=== PATIENT | female | born 1985 | race Two or more races ===

== ENCOUNTER 2023-02-03 09:02 | Inpatient (IN) | payer OTHER ==
[2023-02-03 10:29] VITALS: RESP 18; BMI 27.3
[2023-02-03] MEDS ORDERED: DEXTROSE 5%-LACTATED RINGERS 1,000 ML IV ONE (10:30)
[2023-02-03] MEDS ORDERED: TERBUTALINE SULFATE 1 MG/1 ML VIAL SQ ONE ×2 (10:30→10:45)
[2023-02-03 10:38] LABS: BASO % 0.2 % (0-2.0); EOS % 1.2 % (0-4.5); HEMATOCRIT 37.9 % (32.4-45.2); HEMOGLOBIN 12.2 GM/dL (10.7-15.3); LYMPH % 25.2 % (8-40); MCH 27.1 pg (25.7-33.7); MCHC 32.2 g/dl (32.0-36.0); MEAN PLT VOLUME 8.9 fl (7.5-11.1); MONO % 8.3 % (3.8-10.2); NEUT % 65.1 % (42.8-82.8); PLATELET COUNT 225 10^3/uL (134-434); RDW 12.8 % (11.6-15.6); WHITE BLOOD COUNT 7.1 K/mm3 (4.0-10.0)
[2023-02-03 10:43] LABS: INR 0.99 (0.83-1.09); PROTHROMBIN TIME (PATIENT) 11.5 SEC (9.7-13.0)
[2023-02-03] MEDS ORDERED: DEXTROSE 5%-LACTATED RINGERS 1,000 ML IV SCH (10:45)
[2023-02-03 10:46] LABS: ACTIVATED PTT 29.3 SECONDS (25.2-36.5)
[2023-02-03 11:04] LABS: POTASSIUM 3.7 mmol/L (3.5-5.1)
[2023-02-03 11:06] LABS: BLOOD UREA NITROGEN 8.6 mg/dL (7-18)
[2023-02-03 11:09] LABS: CREATININE 0.4 mg/dL (0.55-1.3)
[2023-02-03 11:11] VITALS: BP 107/63; PULSE 60; TEMP 98
[2023-02-03] MEDS ORDERED: SODIUM CHLORIDE 500 ML IV STA (11:43)
== END 2023-02-03 12:54 | disposition home or self-care (01) | DRG 566 ==
LOC: JLDR 09:02
PROVIDERS: ADMIT Obstetrics & Gynecology Maternal & Fetal Medicine; ATTEND Obstetrics & Gynecology Maternal & Fetal Medicine
DX: O32.1XX0 Maternal care for breech presentation, not applicable or unspecified (principal); Z3A.38 38 weeks gestation of pregnancy
CPT/HCPCS: 36415; 80048; 85025; 85610; 85730; 86780; 86850; 86900; 86901